=== PATIENT | female | born 1935 | race Caucasian/White ===

== ENCOUNTER 2017-10-02 13:56 | Inpatient (IN) | payer OTHER ==
[~2017-10-02] VITALS: Ht 152.4 cm; Wt 56.7 kg
[~2017-10-02 13:56] MED LIST: AMBIEN5 MG PO; ENALAPRIL MALEA20 MG PO; INTEGRA F CAPS1 EACH PO; LASIX20 MG PO; LEVAQUIN750 MG PO; OMEPRAZOLE20 MG PO; OXYCODON HCL-AP1 TA2 PO; PENTOXIFYLLINE400 MG PO; PERCOCET 5-3251 EACH PO
[2017-10-09] MEDS ORDERED: CLINDAMYCIN HC300 MG PO (08:04)
[2017-10-09] MEDS ORDERED: Intestinex CAP PO (08:04)
== END 2017-10-09 13:06 | disposition home or self-care (01) | DRG 300 ==
LOC: ER 13:56 → MEDJ 20:03
PROC: BQ3GZZZ Magnetic Resonance Imaging (MRI) of Right Ankle (ICD-10-PCS; principal; 2017-10-02)
PROC: 8E0ZXY6 Isolation (ICD-10-PCS; 2017-10-05)
PROC: B44HZZZ Ultrasonography of Bilateral Lower Extremity Arteries (ICD-10-PCS; 2017-10-06)
DX: I87.2 Venous insufficiency (chronic) (peripheral) (principal); L97.818 Non-pressure chronic ulcer of other part of right lower leg with other specified severity; L03.115 Cellulitis of right lower limb; N39.0 Urinary tract infection, site not specified; I11.9 Hypertensive heart disease without heart failure; D64.89 Other specified anemias; B96.4 Proteus (mirabilis) (morganii) as the cause of diseases classified elsewhere; B95.62 Methicillin resistant Staphylococcus aureus infection as the cause of diseases classified elsewhere
CPT/HCPCS: 73221